=== PATIENT | female | born 1950 | race Caucasian/White ===

== ENCOUNTER 2020-05-13 15:26 | Emergency (ER) | payer MEDICARE, OTHER, SELFPAY ==
[2020-05-13 15:29] VITALS: BP 178/79; PULSE 102; RESP 20; TEMP 37.5; O2SAT 100
--- NOTE | 2020-05-13 15:34 | DI.RAD.S_ITS ---
PROCEDURE: XR HIP W PEL IF DONE RT 2V INDICATIONS: hip pain worsening x1 wk, no known injury, unable to bear we TECHNIQUE: AP pelvis with lateral view(s) of the right hip(s). COMPARISON: None. FINDINGS: Bones: No fractures or dislocations. Pelvic ring appears intact. No suspicious bony lesions. Mild bilateral symmetric hip DJD. This is demonstrable by joint space narrowing and acetabular roof sclerosis. Soft tissues: The visualized bowel gas pattern is normal. No suspicious soft tissue calcifications. IMPRESSION: Mild right hip DJD. Dictated by: Max Oseguera M.D. on 05/13/2020 at 14:56 Approved by: Max Oseguera M.D. on 05/13/2020 at 14:58
--- NOTE | 2020-05-13 18:53 | ED_ITS ---
HPI - Extremity Problem General Chief complaint: Extremity Problem,Nontraumatic Stated complaint: right hip pain Time Seen by Provider: 05/13/20 18:07 Source: patient and family Mode of arrival: Wheelchair Limitations: no limitations History of Present Illness HPI Narrative: Patient is a 70-year-old female here for evaluation of right- sided hip pain. She states that it has been going on for at least the past week . No known new injury 1 week ago. Does not have any pain radiating down her leg. No problems urinating. No bowel movement issues. No fevers. She did not fall. She did not hit it on anything. Has been taking Tylenol and ibuprofen for the discomfort. States that she has most of her discomfort when she goes from sitting to standing or from standing to sitting. When she is lying flat her symptoms seem to resolve somewhat. She is having a difficult time walking. No prior surgeries to the right hip. Related Data Previous Rx's Medication Instructions Recorded hydrochlorothiazide 25 mg PO QAM #90 tab 07/19/16 mirtazapine 15 mg PO QHS #90 tab 07/19/16 cyclobenzaprine 10 mg PO TID PRN #12 tab 05/13/20 tramadol 50 mg PO TID PRN #12 tab 05/13/20 tramadol [Ultram] 50 mg PO TID PRN #12 tab 05/13/20 Allergies Allergy/AdvReac Type Severity Reaction Status Date / Time From NEOSPORIN Allergy Mild Uncoded 08/12/17 12:28 PENICILLIN Allergy Unknown Uncoded 08/12/17 12:28 Review of Systems Constitutional Constitutional: Denies fever(s), Denies headache(s) and Denies weakness ENT Ears, Nose, Mouth, and Throat: Denies headache(s) and Reports disequilibrium Cardiovascular Cardiovascular: Denies chest pain and Denies dyspnea Respiratory Respiratory: Denies dyspnea Gastrointestinal Gastrointestinal: Denies abdominal pain, Denies nausea and Denies vomiting Musculoskeletal Musculoskeletal: Denies tingling Comments: Right hip pain Integumentary/Breasts Skin/Breast: Denies lesions and Denies rash Neurologic Neurologic: Denies behavioral changes, Denies headache(s), Denies tingling, Repo rts disequilibrium and Denies weakness Psychiatric Psychiatric: Denies behavioral changes Hematologic/Lymphatic On Anticoagulants: No Allergic/Immunologic Allergic/Immunologic: Denies urticaria Patient History Medical History Disturbance in sleep behavior (08/01/14) Hypertension (08/01/14) Lactose intolerance (08/01/14) 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 (07/16/16) Surgical History History of tonsillectomy Family History (Updated 08/08/14 @ 00:00 by Conversion Provider) Father Heart disease Grandfather Peripheral artery disease Grandmother Heart disease Hypertension Mother Heart disease Diabetes mellitus Grandfather Heart disease Grandmother Heart disease Social History Smoking Status: Former smoker Smoking Status: Former smoker Exam Initial Vital Signs Initial Vital Signs: Vital Signs Temperature 99.5 F 05/13/20 15:29 Pulse Rate 102 H 05/13/20 15:29 Respiratory Rate 20 05/13/20 15:29 Blood Pressure 178/79 H 05/13/20 15:29 Pulse Oximetry 100 05/13/20 15:29 Const General: cooperative and comfortable Limitations: mental status not altered HENMT Head: normal to inspection and normocephalic Resp Effort & Inspection: normal respiratory effort Cardio Rate: regular rate Skin Lesions: no lesions Rashes: no rashes Neuro General: patient alert and patient awake Cognition: normal cognition Speech: speech normal Extrem General: capillary refill normal and No edema Other: Falling in bed patient can flex and extend at the ankle and the knee and the hip on the right side without discomfort. She and also internally and externally rotated the right hip without discomfort. She can also abduct and Adduct without discomfort. She describes the location of the pain is being posterior over the piriformis muscle. She does have some tenderness to palpation over this area. She has no tenderness palpation over the lateral aspect of the right hip. Psych Appearance: grossly normal and well kempt Scores GCS [place] coma scale eye opening: Spontaneous [place] coma scale verbal response: Orientated [place] coma scale motor response: Obey commands [place] coma scale total score: 15 Course Orders Ordered: ED Orders 05/13/20 15:34 XR hip w pel if done RT 2V Stat Vital Signs Vital signs: Vital Signs - 8 hr 05/13/20 19:19 Pulse Rate 104 H Respiratory Rate 18 Blood Pressure 184/92 H Pulse Oximetry 97 [facility] - Extremity (Nontraumatic) Imaging Data Extremity x-ray #1: Radiologist's Impression: [address] [id number] ReportSigned Patient: Meka Reynolds#: [id number]: 1950cct:[id number]/Sex: 70 / FDate of Service: 05/13/20Loc: EDAccession Number: [id number] Procedure: XR hip w pel if done RT 2V Ordering Provider: Cecilia White D.O. PROCEDURE: XR HIP W PEL IF DONE RT 2V INDICATIONS: hip pain worsening x1 wk, no known injury, unable to bear we TECHNIQUE: AP pelvis with lateral view(s) of the right hip(s). COMPARISON: None. FINDINGS: Bones: No fractures or dislocations. Pelvic ring appears intact. No suspicious bony lesions. Mild bilateral symmetric hip DJD. This is demonstrable by joint space narrowing and acetabular roof sclerosis. Soft tissues: The visualized bowel gas pattern is normal. No suspicious soft tissue calcifications. IMPRESSION: Mild right hip DJD. Dictated by: Max Oseguera M.D. on 05/13/2020 at 14:56 Approved by: Max Oseguera M.D. on 05/13/2020 at 14:58 [facility] Narrative Medical decision making narrative: Patient is neurovascularly intact. X-ray s howed no signs of acute pathology. She describes the location of her symptoms over the posterior aspect of the right hip. I do suspect this is a musculoskeletal etiology. Did discuss the use of anti-inflammatories and also muscle relaxers. Patient did have some difficulty standing here in the ER but states they can not get a walker when they return home [facility]. We discussed return precautions and follow-up instructions. Patient and her was at bedside expressed understanding and agreement with plan. Discharge Plan Departure Patient Disposition: Home Clinical Impression: Acute hip pain, Lower back pain Instructions: DI for Hip Pain Activity Restrictions/Additional Instructions: There were no fractures on the x-ray. You can walk on your hip as tolerated. Use the walker as needed. Recommend you do light stretching. Continue with the Tylenol/acetaminophen and Motrin/ibuprofen as directed. Return to the emergency department for any new or worsening symptoms Prescriptions: New cyclobenzaprine 10 mg tablet 10 mg PO TID PRN (Reason: muscle spasm) Qty: 12 RF: 0 tramadol [Ultram] 50 mg tablet 50 mg PO TID PRN (Reason: pain) Qty: 12 RF: 0 tramadol 50 mg tablet 50 mg PO TID PRN (Reason: pain) Qty: 12 RF: 0 No Action hydrochlorothiazide 25 MG tablet 25 mg PO QAM Qty: 90 RF: 3 mirtazapine 15 MG tablet 15 mg PO QHS Qty: 90 RF: 3 Referrals: Julian Townsend MD [Primary Care Provider] -
[2020-05-13 19:19] VITALS: BP 184/92; PULSE 104; RESP 18; O2SAT 97
--- NOTE | 2020-05-14 10:34 | PC.NURSE ---
per pt request and dr. luis irving, called scripts in to [facility] pharmacy. 05/14/20 1000.
== END 2020-05-13 19:30 | disposition home or self-care (01) ==
PROVIDERS: Emergency Provider Emergency Medicine; PCP Family Medicine
DX: M25.551 Pain in right hip (principal); M54.5 Low back pain; I10 Essential (primary) hypertension
CPT/HCPCS: 73502; 99283

== ENCOUNTER → 2020-11-13 10:10 | Outpatient (CLI) | payer MEDICARE, OTHER, SELFPAY ==
[2020-11-13 20:02] LABS: Add Manual Diff / Slide Review NO; Basophils Absolute Auto 100 /uL (0-100); Basophils Percent Auto 0.7 % (0-2); Eosinophils Absolute Auto 300 /uL (0-450); Eosinophils Percent Auto 3.2 % (2-4); Hematocrit 43.5 % (36-46); Hemoglobin 14.3 g/dL (12.0-16.0); Lymphocytes Absolute Auto 1900 /uL (1100-4500); Lymphocytes Percent Auto 21.2 % (25-40); Mean Corpuscular HGB Conc 32.9 % (30-36); Mean Corpuscular Hemoglobin 27.5 PG (26-34); Mean Corpuscular Volume 83.8 fL (80-100); Monocytes Absolute Auto 600 /uL (0-900); Monocytes Percent Auto 6.2 % (3-14); Neutrophils Absolute Auto 6200 /uL (1500-7000); Neutrophils Percent Auto 68.7 % (50-75); Platelet Count 210 X10^3/uL (150-400); Red Blood Cell Count 5.19 X10^6/uL (4.0-5.2); Red Cell Distribution Width 14.3 % (11.6-14.8)
[2020-11-13 20:36] LABS: Vitamin D 25 Hydroxy (D3) 33.3 ng/mL (30.0-100.0)
[2020-11-13 20:40] LABS: Alanine Aminotransferase 15 IU/L (<35); Albumin 4.7 g/dL (3.5-5.0); Albumin Globulin Ratio 1.5 (1.0-2.8); Alkaline Phosphatase 60 U/L (38-126); Aspartate Aminotransferase 50 IU/L (14-36); Bilirubin Total 0.7 mg/dL (0.2-1.3); Blood Urea Nitrogen 14 mg/dL (7-17); Calcium 10.1 mg/dL (8.4-10.2); Carbon Dioxide 22 mmol/L (22-32); Chloride 103 mmol/L (98-107); Cholesterol 221 mg/dL (140-199); Estimated Glomerular Filt Rate > 60.0 mL/min (>60); Globulin 3.1 g/dL (1.7-4.1); Glucose 100 mg/dL (80-110); HDL Cholesterol 64 mg/dL (40-60); LDL Cholesterol Calculated 134 mg/dL (<100); Lipase 81 U/L (23-300); Potassium 4.5 mmol/L (3.4-5.1); Sodium 137 mmol/L (137-145); Total Protein 7.8 g/dL (6.3-8.2); Triglycerides 117 mg/dL (35-150)
[2020-11-13 20:45] LABS: HEMOLYSIS 114 (0-50)
== END ==
PROVIDERS: PCP Family Medicine; Visit Provider Family Medicine
DX: E55.9 Vitamin D deficiency, unspecified (principal); I10 Essential (primary) hypertension; M81.0 Age-related osteoporosis without current pathological fracture; E78.5 Hyperlipidemia, unspecified; R19.4 Change in bowel habit
CPT/HCPCS: 80053; 80061; 82306; 83690; 85025

== ENCOUNTER → 2021-01-09 08:35 | Outpatient (CLI) | payer MEDICARE, OTHER, SELFPAY ==
[2021-01-09 20:29] LABS: Alanine Aminotransferase 14 IU/L (<35); Albumin 4.2 g/dL (3.5-5.0); Albumin Globulin Ratio 1.5 (1.0-2.8); Alkaline Phosphatase 57 U/L (38-126); Aspartate Aminotransferase 28 IU/L (14-36); Bilirubin Total 0.3 mg/dL (0.2-1.3); Bilirubin Unconjugated 0.2 mg/dL (0.0-1.1); Globulin 2.8 g/dL (1.7-4.1); HEMOLYSIS < 15 (0-50)
== END ==
PROVIDERS: PCP Family Medicine; Visit Provider Family Medicine
DX: R74.01 Elevation of levels of liver transaminase levels (principal)
CPT/HCPCS: 80076

== ENCOUNTER → 2021-02-15 10:23 | Outpatient (CLI) | payer MEDICARE, OTHER, SELFPAY ==
[2021-02-15 18:57] LABS: Add Manual Diff / Slide Review NO; Basophils Absolute Auto 100 /uL (0-100); Basophils Percent Auto 0.8 % (0-2); Eosinophils Absolute Auto 400 /uL (0-450); Eosinophils Percent Auto 3.8 % (2-4); Hematocrit 40.9 % (36-46); Hemoglobin 13.6 g/dL (12.0-16.0); Lymphocytes Absolute Auto 1600 /uL (1100-4500); Lymphocytes Percent Auto 17.7 % (25-40); Mean Corpuscular HGB Conc 33.3 % (30-36); Mean Corpuscular Hemoglobin 28.3 PG (26-34); Mean Corpuscular Volume 84.9 fL (80-100); Monocytes Absolute Auto 700 /uL (0-900); Monocytes Percent Auto 7.2 % (3-14); Neutrophils Absolute Auto 6600 /uL (1500-7000); Neutrophils Percent Auto 70.5 % (50-75); Platelet Count 248 X10^3/uL (150-400); Red Blood Cell Count 4.81 X10^6/uL (4.0-5.2); Red Cell Distribution Width 14.4 % (11.6-14.8); White Blood Cell Count 9.3 X10^3/uL (4.5-11.0)
== END ==
PROVIDERS: PCP Family Medicine; Referring Provider Physician Assistant Medical; Visit Provider Physician Assistant Medical
DX: R00.0 Tachycardia, unspecified (principal); R19.4 Change in bowel habit; M25.559 Pain in unspecified hip
CPT/HCPCS: 85025; 87045; 87177; 87899

== ENCOUNTER → 2021-12-02 10:23 | Outpatient (CLI) | payer MEDICARE, OTHER, SELFPAY ==
[2021-12-02 20:18] LABS: Add Manual Diff / Slide Review NO; Basophils Absolute Auto 100 /uL (0-100); Basophils Percent Auto 0.7 % (0-2); Eosinophils Absolute Auto 100 /uL (0-450); Eosinophils Percent Auto 1.9 % (2-4); Hematocrit 41.5 % (36-46); Hemoglobin 14.1 g/dL (12.0-16.0); Lymphocytes Absolute Auto 1500 /uL (1100-4500); Lymphocytes Percent Auto 19.8 % (25-40); Mean Corpuscular Hemoglobin 28.6 PG (26-34); Monocytes Absolute Auto 400 /uL (0-900); Monocytes Percent Auto 5.3 % (3-14); Neutrophils Absolute Auto 5600 /uL (1500-7000); Neutrophils Percent Auto 72.3 % (50-75); Platelet Count 229 X10^3/uL (150-400); Red Blood Cell Count 4.94 X10^6/uL (4.0-5.2); Red Cell Distribution Width 13.5 % (11.6-14.8); White Blood Cell Count 7.8 X10^3/uL (4.5-11.0)
[2021-12-02 20:22] LABS: Alanine Aminotransferase 13 IU/L (<35); Albumin 4.7 g/dL (3.5-5.0); Albumin Globulin Ratio 1.4 (1.0-2.8); Alkaline Phosphatase 70 U/L (38-126); Aspartate Aminotransferase 33 IU/L (14-36); BUN Creatinine Ratio 19.8 (6-22); Bilirubin Total 0.5 mg/dL (0.2-1.3); Blood Urea Nitrogen 16 mg/dL (7-17); Calcium 9.8 mg/dL (8.4-10.2); Carbon Dioxide 32 mmol/L (22-32); Chloride 98 mmol/L (98-107); Cholesterol 235 mg/dL (140-199); Estimated Glomerular Filt Rate > 60 mL/min (>60); Globulin 3.4 g/dL (1.7-4.1); Glucose 106 mg/dL (80-110); HDL Cholesterol 71 mg/dL (40-60); HEMOLYSIS 21 (0-50); LDL Cholesterol Calculated 148 mg/dL (<100); Potassium 3.9 mmol/L (3.4-5.1); Sodium 138 mmol/L (137-145); Total Protein 8.1 g/dL (6.3-8.2); Triglycerides 82 mg/dL (35-150)
[2021-12-02 21:01] LABS: Thyroid Stimulating Hormone 1.03 uIU/mL (0.47-4.68)
== END ==
PROVIDERS: PCP Physician Assistant Medical; Visit Provider Family Medicine
DX: E78.5 Hyperlipidemia, unspecified (principal); R68.89 Other general symptoms and signs; I10 Essential (primary) hypertension
CPT/HCPCS: 80053; 80061; 84443; 85025

== ENCOUNTER → 2022-03-24 09:48 | Outpatient (CLI) | payer MEDICARE, OTHER, SELFPAY ==
[2022-03-24 20:01] LABS: Cholesterol 182 mg/dL (140-199); HDL Cholesterol 66 mg/dL (40-60); LDL Cholesterol Calculated 96 mg/dL (<100); Triglycerides 99 mg/dL (35-150)
== END ==
PROVIDERS: PCP Family Medicine; Visit Provider Family Medicine
DX: I10 Essential (primary) hypertension (principal); E78.2 Mixed hyperlipidemia
CPT/HCPCS: 80061

== ENCOUNTER → 2023-01-27 08:49 | Outpatient (CLI) | payer MEDICARE, OTHER, SELFPAY ==
[2023-01-27 19:07] LABS: Alanine Aminotransferase 22 IU/L (<35); Albumin 4.2 g/dL (3.5-5.0); Albumin Globulin Ratio 1.5 (1.0-2.8); Alkaline Phosphatase 60 U/L (38-126); Aspartate Aminotransferase 31 IU/L (14-36); BUN Creatinine Ratio 17.6 (6-22); Bilirubin Total 0.4 mg/dL (0.2-1.3); Blood Urea Nitrogen 12 mg/dL (7-17); Calcium 9.8 mg/dL (8.4-10.2); Carbon Dioxide 31 mmol/L (22-32); Chloride 95 mmol/L (98-107); Cholesterol 179 mg/dL (140-199); Estimated Glomerular Filt Rate > 60 mL/min (>60); Globulin 2.8 g/dL (1.7-4.1); Glucose 97 mg/dL (80-110); HDL Cholesterol 72 mg/dL (40-60); HEMOLYSIS < 15 (0-50); LDL Cholesterol Calculated 89 mg/dL (<100); Potassium 3.9 mmol/L (3.4-5.1); Sodium 134 mmol/L (137-145); Triglycerides 92 mg/dL (35-150)
[2023-01-27 19:17] LABS: Add Manual Diff / Slide Review NO; Basophils Absolute Auto 100 /uL (0-100); Basophils Percent Auto 0.9 % (0-2); Eosinophils Absolute Auto 300 /uL (0-450); Eosinophils Percent Auto 3.8 % (2-4); Hematocrit 38.3 % (36-46); Hemoglobin 12.8 g/dL (12.0-16.0); Lymphocytes Absolute Auto 2000 /uL (1100-4500); Lymphocytes Percent Auto 24.4 % (25-40); Mean Corpuscular HGB Conc 33.3 % (30-36); Mean Corpuscular Hemoglobin 27.8 PG (26-34); Mean Corpuscular Volume 83.5 fL (80-100); Monocytes Absolute Auto 500 /uL (0-900); Monocytes Percent Auto 6.7 % (3-14); Neutrophils Absolute Auto 5200 /uL (1500-7000); Neutrophils Percent Auto 64.2 % (50-75); Platelet Count 239 X10^3/uL (150-400); Red Blood Cell Count 4.59 X10^6/uL (4.0-5.2); Red Cell Distribution Width 14.5 % (11.6-14.8); White Blood Cell Count 8.1 X10^3/uL (4.5-11.0)
[2023-01-29 16:18] LABS: Hep C Virus Ab w/Reflex Quant NEGATIVE s/c (NEGATIVE)
== END ==
PROVIDERS: PCP Family Medicine; Visit Provider Physician Assistant
DX: M79.673 Pain in unspecified foot (principal); I10 Essential (primary) hypertension; E78.2 Mixed hyperlipidemia; G89.29 Other chronic pain; R74.8 Abnormal levels of other serum enzymes
CPT/HCPCS: 80053; 80061; 85025; 86803

== ENCOUNTER → 2023-02-13 12:13 | Outpatient (CLI) | payer MEDICARE, OTHER, SELFPAY ==
--- NOTE | 2023-02-13 12:13 | DI.RAD.S_ITS ---
Bone Density Report Name: OKSANA FOSTER Age: 72 Sex: Female Ethnicity: White Date of : 1950 Indication: postmenopausal; screening for osteoporosis; parental hip fracture; Referring Provider: YENIFER AGUIAR Study: Bone densitometry was performed. Exam Date: February 13, 2023 Accession number: [id number] Bone Density: Region BMD T-score Z-score Classification AP Spine(L1, L2, L3) 0.827 -1.7 0.4 Osteopenia Femoral Neck (Left) 0.586 -2.4 -0.5 Osteopenia Total Hip (Left) 0.727 -1.8 -0.2 Osteopenia Femoral Neck (Right) 0.608 -2.2 -0.3 Osteopenia Total Hip (Right) 0.754 -1.5 0.1 Osteopenia Total Hip Mean 0.740 -1.7 -0.1 Osteopenia World Health Organization criteria for BMD impression classify patients as: Normal (T-score at or above -1.0), Osteopenia (T-score between -1.0 and -2.5), or Osteoporosis (T-score at or below -2.5). 10-year Fracture Risk(1): Major Osteoporotic Fracture 22% Hip Fracture 9.2% Reported Risk Factors: [place] (), Neck BMD=0.586, BMI=32.1, parental fracture (1) FRAX(R) Version 3.08. Fracture probability calculated for an untreated patient. Fracture probability may be lower if the patient has received treatment. Impression: The patient has low bone mass, based on the Left Femoral Neck T-score. The patient has an estimated ten-year risk of hip fracture of 9.2% and an estimated ten-year risk of major fracture of 22%, based on the WHO FRAX algorithm. The patient has risk factors, including: parental hip fracture. Discussion: BONE DENSITY IS LOW AT ONE OR MORE SKELETAL SITES. THE PATIENT'S BMD AND CLINICAL RISK FACTORS CONTRIBUTE TO THIS PATIENT'S HIGH RISK OF FRACTURE. This patient's lowest T-score is low at one or more skeletal sites. It meets the World Health Organization's (WHO) criteria for low bone mass (T-score between -1.0 and -2.5). The patient's 10-year risk of hip fracture and 10 year risk of a major osteoporotic fracture as calculated by FRAX exceeds the threshold where pharmacological therapy is recommended by the National Osteoporosis Foundation (NOF). However, all treatment decisions require clinical judgment and consideration of individual patient factors, including patient preferences, comorbidities, previous drug use, risk factors not captured in the FRAX model (e.g., frailty, falls, vitamin D deficiency, increased bone turnover, interval significant decline in bone density) and possible under or overestimation of fracture risk by FRAX. The patient should follow a healthful lifestyle (good nutrition with adequate calcium and vitamin D, and appropriate weight-bearing exercise). Follow-Up: Consider a repeat BMD and Vertebral Fracture Assessment (VFA) exam in 2 years or sooner if medically necessary, to reassess this patient's status. Reported by: EARLENE CANNON M.D. on 02/13/2023 12:39:00 PM.
== END ==
PROVIDERS: PCP Family Medicine; Referring Provider Family Medicine; Visit Provider Family Medicine
DX: M81.0 Age-related osteoporosis without current pathological fracture (principal); Z78.0 Asymptomatic menopausal state; M85.89 Other specified disorders of bone density and structure, multiple sites
CPT/HCPCS: 77080

== ENCOUNTER → 2023-04-15 12:55 | Outpatient (CLI) | payer MEDICARE, OTHER, SELFPAY ==
[2023-04-15 20:21] LABS: Glucose 133 mg/dL (80-110)
== END ==
PROVIDERS: PCP Family Medicine; Visit Provider Family Medicine
DX: Z13.1 Encounter for screening for diabetes mellitus (principal)
CPT/HCPCS: 82947

== ENCOUNTER → 2023-05-06 09:23 | Outpatient (CLI) | payer MEDICARE, OTHER, SELFPAY ==
[2023-05-06 19:31] LABS: Cholesterol 136 mg/dL (140-199); HDL Cholesterol 66 mg/dL (40-60); LDL Cholesterol Calculated 51 mg/dL (<100); Triglycerides 97 mg/dL (35-150)
[2023-05-06 19:51] LABS: Hemoglobin A1C% w Est Avg Glu 5.6 % (4.0-6.0)
== END ==
PROVIDERS: PCP Family Medicine; Visit Provider Family Medicine
DX: E78.2 Mixed hyperlipidemia (principal); R73.01 Impaired fasting glucose
CPT/HCPCS: 80061; 83036

== ENCOUNTER 2025-02-02 20:49 | Emergency (ER) | payer MEDICARE, OTHER, SELFPAY ==
[2025-02-02] VITALS (9 sets, daily range): BP systolic 136–160; BP diastolic 63–72; PULSE 91–128; RESP 10–20; TEMP 37.3; O2SAT 95–98; BMI 30.2
--- NOTE | 2025-02-02 21:16 | EKG_ITS ---
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
[2025-02-02 21:49] LABS: Add Manual Diff / Slide Review NO; Hematocrit 23.2 % (36-46); Hemoglobin 7.8 g/dL (12.0-16.0); Lymphocytes Absolute Auto 700 /uL (1100-4500); Mean Corpuscular HGB Conc 33.8 % (30-36); Mean Corpuscular Hemoglobin 28.0 PG (26-34); Mean Corpuscular Volume 82.8 fL (80-100); Platelet Count 277 X10^3/uL (150-400)
[2025-02-02 21:56] LABS: INR 1.2 (0.9-1.3); Prothrombin Time 13.3 SECONDS (9.4-12.5)
[2025-02-02 21:59] LABS: Alanine Aminotransferase 32 IU/L (<35); Albumin 3.8 g/dL (3.5-5.0); Albumin Globulin Ratio 1.4 (1.0-2.8); Alkaline Phosphatase 117 U/L (38-126); Blood Urea Nitrogen 17 mg/dL (7-17); Calcium 8.6 mg/dL (8.4-10.2); Carbon Dioxide 30 mmol/L (22-32); Chloride 90 mmol/L (98-107); Estimated Glomerular Filt Rate > 60 mL/min (>60); Globulin 2.8 g/dL (1.7-4.1); Glucose 117 mg/dL (70-99); HEMOLYSIS < 15 (0-50); Lipase 45 U/L (23-300); PTT Partial Thromboplastin Tim 26 SECONDS (25.1-36.5); Potassium 3.7 mmol/L (3.4-5.1); Sodium 126 mmol/L (137-145); Total Protein 6.6 g/dL (6.3-8.2)
[2025-02-02 22:46] LABS: Culture Indicated Urine Cult Not Indicated
--- NOTE | 2025-02-02 23:27 | ED.GIBLEED ---
HPI - GI Bleed General Chief complaint: GI Bleed Stated complaint: blood in spit up *post chemo* Time Seen by Provider: 02/02/25 23:25 Source: patient and family Mode of arrival: Wheelchair History of Present Illness HPI Narrative: 74-year-old female patient with a history of hypertension, dyslipidemia, CAD and pancreatic cancer under current treatment who complains of coughing up mucus and blood 1 time at 6:00 p.m. this evening. She has not had much of a cough lately or shortness of breath. No further coughing of blood. She reports dark brown stools for about a month. No black stools. Related Data Previous Rx's ?Medication ?Instructions ?Recorded cetirizine 10 mg tablet (Zyrtec) 10 mg PO DAILY PRN allergy 09/16/22 symptoms #30 tabs conjugated estrogens 0.625 mg/gram 0.625 mg vaginal DAILY #30 grams 01/12/23 vaginal cream (Premarin) fluticasone propionate 50 1 spray intranasal BID #16 grams 01/12/23 mcg/actuation nasal spray,suspension (Flonase Allergy Relief) metronidazole 0.75 % topical gel 1 applic topical BID #45 grams 01/12/23 mirtazapine 15 mg tablet 15 mg PO QHS #90 tabs 02/04/23 rosuvastatin 20 mg tablet (Crestor) 20 mg PO DAILY #90 tabs 03/11/23 hydrochlorothiazide 25 mg tablet 25 mg PO QAM #90 tabs 04/21/23 metoprolol succinate 25 mg 25 mg PO DAILY #90 tabs 02/19/24 tablet,extended release 24 hr Allergies Allergy/AdvReac Type Severity Reaction Status Date / Time latex Allergy Unknown Verified 01/12/23 11:06 bacitracin (From Neosporin Allergy Verified 02/02/25 21:03 ([id number])) neomycin (From Neosporin Allergy Verified 02/02/25 21:03 ([id number])) Penicillins Allergy Verified 02/02/25 21:03 polymyxin B (From Neosporin Allergy Verified 02/02/25 21:03 ([id number])) cyclobenzaprine AdvReac Intermediate Elevated BP Verified 01/12/23 11:06 lactose AdvReac Verified 02/02/25 21:03 Review of Systems Review of Systems ROS Unobtainable: All systems reviewed & are unremarkable except as noted in HPI and below Respiratory Respiratory: Reports as per HPI Genitourinary Genitourinary: Reports as per HPI Patient History Medical History (Updated 02/03/25 @ 03:37 by Darron Mari MD) Dyspareunia Lichen sclerosus et atrophicus of the vulva Routine general medical examination at a health care facility Essential hypertension Major depression in remission (07/16/16) Disturbance in sleep behavior (08/01/14) 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 No distress. Appears well nourished and well hydrated Lungs: Clear to auscultation with good air movement. No wheezing, rales or rhonchi. No respiratory distress Cardiac: Regular rate and rhythm with no appreciable murmur or gallop Abdomen: Soft, nontender with no distention or masses. Normal bowel sounds. No rebound or guarding Rectal: Dark brown stool which is heme-positive Musculoskeletal: Exam of the extremities, axial spine and ribcage reveals no deformity, bony tenderness or swelling. Range of motion intact Neuro: Alert and oriented. Cranial nerves, motor, sensory and cerebellar all grossly intact. No focal deficit Skin: Warm and normal color. No rashes Psychological: Normal affect and interaction. No evidence of delusion or psychosis. Normal mood. Initial Vital Signs Initial Vital Signs: Vital Signs Temperature 99.2 F 02/02/25 20:57 Pulse Rate 91 H 02/02/25 20:57 Respiratory Rate 20 02/02/25 20:57 Blood Pressure 146/65 H 02/02/25 20:57 Pulse Oximetry 98 02/02/25 20:57 Oxygen Delivery Method Room Air 02/02/25 20:57 Course Course Course Narrative: 00:35 I discussed the patient's case with Dr. Mena, hospitalist. He recommended a CT scan of the abdomen and pelvis. I also think I will add the chest since it is uncertain whether she had hemoptysis or GI bleeding. Heme-positive. She does have metastatic pancreatic cancer. We will obtain CT chest abdomen and pelvis with contrast. If these are negative. He feels she can be discharged home with outpatient follow up. Orders Ordered: ED Orders 02/02/25 21:06 EKG-12 Lead Stat 02/02/25 21:35 Complete Blood Count AUTO DIFF Stat Comprehensive Metabolic Panel Stat Lipase Stat PTT Partial Thromboplastin Ravi Stat Prothrombin Time INR Stat Type and Screen Stat 02/02/25 22:20 Urine Culture Stat Urine Microscopic Stat 02/03/25 00:37 CT abdomen pelvis w con Stat 02/03/25 01:15 CT chest w con Stat Heparin Sodium (Porcine) (Heparin 500 Unit/5 Ml [place]) 500 unit IV PRN PRN PRN Reason: Flush Ondansetron HCl (Ondansetron 4 Mg/2 Ml Inj) 4 mg IV NOW PRN PRN Reason: Nausea And Vomiting Vital Signs Vital signs: Vital Signs - 8 hr 02/02/25 20:57 02/02/25 21:35 02/02/25 21:47 Temperature 99.2 F Pulse Rate 91 H 123 H 119 H Respiratory Rate 20 Blood Pressure 146/65 H Pulse Oximetry 98 96 Oxygen Delivery Method Room Air 02/02/25 21:49 02/02/25 21:49 02/02/25 22:00 Temperature Pulse Rate 124 H 128 H Respiratory Rate 16 15 Blood Pressure 139/63 Pulse Oximetry 96 95 Oxygen Delivery Method 02/02/25 22:00 02/02/25 22:36 02/02/25 22:37 Temperature Pulse Rate 105 H 104 H Respiratory Rate 10 L 14 Blood Pressure 136/63 Pulse Oximetry 96 96 Oxygen Delivery Method 02/02/25 22:37 02/02/25 23:00 02/02/25 23:00 Temperature Pulse Rate 101 H Respiratory Rate 15 Blood Pressure 138/63 141/67 H Pulse Oximetry 96 Oxygen Delivery Method 02/02/25 23:30 02/02/25 23:30 02/03/25 00:00 Temperature Pulse Rate 114 H 118 H Respiratory Rate 20 16 Blood Pressure 160/72 H Pulse Oximetry 96 94 Oxygen Delivery Method 02/03/25 00:00 02/03/25 00:18 02/03/25 00:30 Temperature Pulse Rate 106 H Respiratory Rate Blood Pressure 143/65 H 139/64 Pulse Oximetry Oxygen Delivery Method 02/03/25 00:30 02/03/25 01:08 02/03/25 01:10 Temperature Pulse Rate 102 H 111 H 108 H Respiratory Rate 15 15 Blood Pressure Pulse Oximetry 94 93 Oxygen Delivery Method 02/03/25 01:10 02/03/25 02:42 Temperature 99.3 F Pulse Rate 104 H Respiratory Rate 30 H Blood Pressure 144/65 H 125/58 L Pulse Oximetry 97 Oxygen Delivery Method MDM - GI Bleed Differential Diagnosis Differential diagnosis: Likely hemorrhoids, esophageal varices, gastritis, Upper gastrointestinal hemorrhage, Lower gastrointestinal hemorrhage and hematochezia Lab Data Attestation: I reviewed the patient's lab results. Lab results narrative: CBC reveals WBCs 12.4, hemoglobin 7.8 and hematocrit 232. Unsure of her baseline since we have no recent CBC. CMP reveals sodium 126 and otherwise unremarkable. Stool is guaiac positive. The urine dip negative 02/02/25 21:35 02/02/25 21:35 Labs: Lab Results 02/02/25 02/02/25 Range/Units 21:35 22:20 WBC 12.4 H (4.5-11.0) X10^3/uL RBC 2.80 L (4.0-5.2) X10^6/uL Hgb 7.8 L (12.0-16.0) g/dL Hct 23.2 L (36-46) % MCV 82.8 (80-100) fL MCH 28.0 (26-34) PG MCHC 33.8 (30-36) % RDW 15.8 H (11.6-14.8) % Plt Count 277 (150-400) X10^3/uL Neut % (Auto) 91.1 H (50-75) % Lymph % (Auto) 5.6 L (25-40) % [place] % (Auto) 1.6 L (3-14) % Eos % (Auto) 0.6 L (2-4) % Baso % (Auto) 1.1 (0-2) % Neut # (Auto) 85268 H (7990-7683) /uL Lymph # (Auto) 700 L (4473-8528) /uL [place] # (Auto) 200 (0-900) /uL Eos # (Auto) 100 (0-450) /uL Baso # (Auto) 100 (0-100) /uL PT 13.3 H (9.4-12.5) SECONDS INR 1.2 (0.9-1.3) APTT 26 (25.1-36.5) SECONDS Sodium 126 L (137-145) mmol/L Potassium 3.7 (3.4-5.1) mmol/L Chloride 90 L (98-107) mmol/L Carbon Dioxide 30 (22-32) mmol/L BUN 17 (7-17) mg/dL Creatinine 0.62 (0.52-1.04) mg/dL Estimated GFR > 60 (>60) mL/min BUN/Creatinine Ratio 27.4 H (6-22) Glucose 117 H (70-99) mg/dL Calcium 8.6 (8.4-10.2) mg/dL Total Bilirubin 0.7 (0.2-1.3) mg/dL AST 37 H (14-36) IU/L ALT 32 (<35) IU/L Alkaline Phosphatase 117 (38-126) U/L Total Protein 6.6 (6.3-8.2) g/dL Albumin 3.8 (3.5-5.0) g/dL Globulin 2.8 (1.7-4.1) g/dL Albumin/Globulin Ratio 1.4 (1.0-2.8) Lipase 45 (23-300) U/L Urine RBC 0-1/hpf (0-5/HPF) Urine WBC None seen (0-5/HPF) Ur Squamous Epith Cells 0-1 /hpf (0-5/HPF) Urine Bacteria None seen (None) Ur Culture Indicated? Cult not indicated Vol Urine Centrifuged 10ml (spun) Blood Type A Positive Antibody Screen Negative Point of Care Testing Stool Occult Blood Positive Urine Dip Bedside Urine Glucose Negative Bedside Urine Bilirubin - Negative Bedside Urine Ketone - Negative Urine Specific [place] 1.010 Bedside Urine Occult Blood ++ Bedside Urine pH 6.0 Bedside Urine Protein +/- 15 Bedside Urine Urobilinogen - Negative Bedside Urine Nitrite - Negative Bedside Urine Leukocytes - Negative Esterase Imaging Data CT scan - abdomen/pelvis: Radiologist's Impression: IMPRESSION: 1. No active extravasation is identified. No pneumoperitoneum. New pocket of fluid under the left liver measuring 5.7 cm. Trace free fluid adjacent to the duodenum. 2. Lesion at the anterior pancreas measuring 3.8 cm. 3. Numerous hepatic metastases. 4. Several peritoneal implants. Small volume of free fluid in the pelvis. CT scan - chest: Radiologist's Impression: IMPRESSION: 1. No pulmonary embolism. 2. No significant acute airspace opacity. No pulmonary nodules. 3. Right pericardiac node is suspicious. Hepatic metastases. ECG Data Attestation: I personally reviewed and interpreted this ECG as follows: (Sinus tachycardia with PACs. Poor R-wave progression. Rate 123. Otherwise no ischemic changes and normal axis and intervals ) MDM Narrative Medical decision making narrative: Patient is undergoing chemotherapy for pancreatitis causing its own anemia and possibly pancytopenia. In addition she had 1 episode of apparent hemoptysis and not hematemesis but no further episodes in the ER and negative chest CT regarding hemoptysis at least. Her scans of the chest, abdomen and pelvis revealed no new findings but findings consistent with her metastatic pancreatic cancer. She had normal-appearing stool but it did test positive for Hemoccult indicating a possible GI bleed. Her hemoglobin was 7.8 but we do not have a recent baseline for comparison. The patient and her says she has been anemic secondary to her chemotherapy. Patient is currently stable with no further symptoms and stable vital signs. Who not believe she needs further workup or admission. I also consulted with our hospitalist who agrees with that assessment. Patient will be discharged home with instructions to contact her team later this morning to discuss her symptoms and findings. She may need to be referred for endoscopy or bronchoscopy. She is to return to the ER if worse. Discharge Plan Departure Patient Disposition: Home Clinical Impression: Hemoptysis, Anemia, Guaiac positive stools Instructions: Anemia, Gastrointestinal Bleeding, DI for Hemoptysis Activity Restrictions/Additional Instructions: Assessment: 1. One episode of hemoptysis/coughing blood. Stable with no further episodes. 2. Normal-appearing stool but heme positive on testing indicating possible GI bleed. 3. Anemia which can be from chemotherapy the possibly from problems 1 and 2 also. Plan: Hydration, rest and supportive care. Contact your providers later this morning when the office isn't open to describe your symptoms and visit to the ER and findings as described above. May need endoscopy or bronchoscopy. Prescriptions: No Action mirtazapine 15 mg tablet 15 mg PO QHS Qty: 90 1RF hydrochlorothiazide 25 mg tablet 25 mg PO QAM Qty: 90 1RF metoprolol succinate 25 mg tablet extended release 24 hr 25 mg PO DAILY Qty: 90 1RF rosuvastatin [Crestor] 20 mg tablet 20 mg PO DAILY Qty: 90 3RF cetirizine [Zyrtec] 10 mg tablet 10 mg PO DAILY PRN (Reason: allergy symptoms) Qty: 30 0RF metronidazole 0.75 % gel 1 applic topical BID Qty: 45 3RF fluticasone propionate [Flonase Allergy Relief] 50 mcg/actuation spray,suspension 1 spray intranasal BID Qty: 16 0RF Rx Instructions: administer into each nostril Premarin 0.625 mg/gram cream 0.625 mg vaginal DAILY Qty: 30 4RF Rx Instructions: daily for 10 days then three times a week Referrals: Sena Thomas MD [Primary Care Provider, Family Practice] Stand Alone Forms: Patient Portal/API
[2025-02-03] VITALS (9 sets, daily range): BP systolic 125–144; BP diastolic 58–65; PULSE 99–118; RESP 14–30; TEMP 37.4; O2SAT 92–97
--- NOTE | 2025-02-03 00:37 | DI.CT.S_ITS ---
PROCEDURE: CT ABDOMEN PELVIS W CON INDICATIONS: GI bleed and hemoptysis. Metastatic pancreatic cancer TECHNIQUE: After the administration of intravenous contrast, axial sections acquired from the lung bases to the pubic symphysis. Coronal and sagittal reformats were performed. For radiation dose reduction, the following was used: automated exposure control, adjustment of mA and/or kV according to patient size. COMPARISON: [facility], CT, CT KIDNEY URETER BLADDER (KUB), 12/30/2024, 13:40. FINDINGS: Image quality: Diagnostic. Lower Chest: Central venous line with the catheter at the right atrium. No pleural effusion. ABDOMEN: Liver: Multiple hepatic lesions. -Left liver 2.4 cm, (2/36) -Right liver 1.7 cm, (2/38). Gallbladder: No radiopaque gallstones or wall thickening. Biliary ducts: No biliary dilation. Pancreas: Ill-defined irregular mass at the anterior pancreas measuring 3.8 cm, (2/59). No ductal dilation. Spleen: Size is within normal limits. Adrenal Glands: No adrenal nodules. Kidneys and Ureters: No hydronephrosis. No solid mass. No complex renal cystic lesion which requires follow up. Stomach and Bowel: Normal colonic caliber, without significant wall thickening. No active extravasation is seen. No diverticulitis. Normal appendix. No small bowel obstruction. Trace fluid adjacent to the duodenum. The stomach is not distended. Peritoneum: No pneumoperitoneum. Small volume of fluid under the left liver measuring 5.7 cm, (2/42). Thickening at the left pericolic gutter. Small left peritoneal nodules. Thickening adjacent to the hepatic flexure, (2/80). Thickening anterior to the cecum. Ventral Wall: No significant ventral hernia. Abdominal Nodes: No retroperitoneal or mesenteric adenopathy by size criteria. Vessels: Portal vein/SMV confluence is attenuated. No aortic aneurysm. PELVIS: Pelvic Organs: Anteverted uterus. Right ovarian cyst measuring 3.2 cm. Small volume of free fluid in the pelvis. Bladder: No bladder wall thickening. Pelvic Nodes: No enlarged lymph nodes. Miscellaneous: No inguinal hernias are seen. Bones: No aggressive osseous abnormality. IMPRESSION: 1. No active extravasation is identified. No pneumoperitoneum. New pocket of fluid under the left liver measuring 5.7 cm. Trace free fluid adjacent to the duodenum. 2. Lesion at the anterior pancreas measuring 3.8 cm. 3. Numerous hepatic metastases. 4. Several peritoneal implants. Small volume of free fluid in the pelvis. Dictated by: Max Oseguera M.D. on 02/03/2025 at 3:09 Approved by: Max Oseguera M.D. on 02/03/2025 at 3:22
--- NOTE | 2025-02-03 01:15 | DI.CT.S_ITS ---
PROCEDURE: CT CHEST W CON INDICATIONS: GI Bleed and hemoptysis. Metastatic pancreatic cancer TECHNIQUE: After the administration of intravenous contrast, 5 mm thick sections acquired from the pulmonary apices to the posterior costophrenic angles. 1 mm axial lung, 5 mm thick coronal and sagittal reformats and 7 mm axial MIP were acquired. For radiation dose reduction, the following was used: automated exposure control, adjustment of mA and/or kV according to patient size. COMPARISON: None. FINDINGS: Image quality: Diagnostic. Lower Neck: No enlarged lymph nodes. Thyroid: No thyroid nodules which require sonographic follow up, per consensus guidelines. Axillae: No enlarged lymph nodes. Chest Wall: Right-sided port with the catheter tip at the cavoatrial junction. Bones: No suspicious osseous lesion. Lungs and Pleura: No pneumothorax or pleural effusions. Mild bibasilar streaky opacity. No significant pulmonary nodules. The central airways are clear. Heart: Heart size is normal. No pericardial effusion. Thoracic Vessels: The aorta and pulmonary arteries demonstrate normal size. Mediastinum and Mcihelle: No enlarged lymph nodes. Right pericardiac node measuring 0.6 cm, (2/66), suspicious. Esophagus: No wall thickening. No hiatal hernia. Upper Abdomen: Dictated separately. Hepatic metastases. IMPRESSION: 1. No pulmonary embolism. 2. No significant acute airspace opacity. No pulmonary nodules. 3. Right pericardiac node is suspicious. Hepatic metastases. Dictated by: Max Oseguera M.D. on 02/03/2025 at 3:22 Approved by: Max Oseguera M.D. on 02/03/2025 at 3:26
== END 2025-02-03 04:00 | disposition home or self-care (01) ==
PROVIDERS: Emergency Provider Emergency Medicine; PCP Family Medicine
DX: R04.2 Hemoptysis (principal); D64.9 Anemia, unspecified; R19.5 Other fecal abnormalities; Z87.891 Personal history of nicotine dependence; C25.9 Malignant neoplasm of pancreas, unspecified
CPT/HCPCS: 36415; 71260; 74177; 80053; 81003; 81015; 82272; 83690; 85025; 85610; 85730; 86850; 86900; 86901; 87086; 93005; 99284; J1642; Q9967